=== PATIENT | female | born 1965 | race Caucasian/White ===

== ENCOUNTER 2025-07-05 09:46 | Outpatient (AMB) | payer OTHER, MEDICAID, SELFPAY ==
--- NOTE | 2025-07-05 09:59 | MHC.OFFVIS ---
Intake Visit Reasons: 6 months Allergies Penicillins Allergy (Unknown, Verified 06/28/25 07:56) Unknown Sulfa (Sulfonamide Antibiotics) Allergy (Unknown, Verified 06/28/25 07:56) Unknown Medication List - Last Reconciled 07/05/25 by Joellen Esteves MD levothyroxine 88 mcg PO DAILY lorazepam mg PO methotrexate sodium mg PO metoprolol succinate ER 25 mg PO DAILY rizatriptan take 1 tab at onset of headache; if no relief may repeat 1 tab after at least 2 hrs; max = 3 tabs/24 hr PO HPI Comments Details: Had bilateral orbital decompression in July 2024for thyrotoxicosis.. Had total thyroidectomy on 01/20/24. Having orbital decompression in July. Migraines are doing well after Botox. Now getting 1 migraine a week which can be aborted by Maxalt but if she delays it then it can last several hours . Some increase in frequency from previous baseline. Wants to resume Botox but I am not sure that she needs it just yet at her current frequency. She has been getting Botox inj for chronic migraine with the last one in April 2023. No further aura with some black spots in vision also. She has a history of migraines, mild hydrocephalus and carpal tunnel syndrome. [facility] Medical History (Updated 07/05/25 @ 10:06 by Joellen Esteves MD) TMJ (dislocation of temporomandibular joint) Torticollis Psoriatic arthropathy Anxiety Migraine Carpal tunnel syndrome Review of Systems Const Details: General/Constitutional:? Change in appetitedenies.? Fatiguedenies.? Feverdenies.? Weight gaindenies.? Weight lossdenies. ???Sleep:? Difficulty getting to sleepdenies.? Difficulty maintaining sleepdenies?.? Daytime sleepinessdenies. ???Respiratory:? Shortness of breathdenies.? Chest paindenies. ???Cardiovascular:? Chest pain at restdenies.? Chest pain with exertiondenies.? Dizzinessdenies.? Fluid accumulation in the legsdenies.? Irregular heartbeatdenies.? Palpitationsdenies. ???Gastrointestinal:? Constipationdenies.? Diarrheadenies.? Difficulty swallowingdenies.? Heartburndenies.? Nauseadenies. ???Genitourinary:? Frequent urinationdenies.? Urgencydenies.? Incontinencedenies. ???Musculoskeletal:? Neck paindenies.? Back paindenies.? Joint stiffnessadmits.? Sciaticadenies. ???Neurologic:? Difficulty swallowingdenies.? Balance difficultydenies.? Coordinationnormal.? Difficulty speakingdenies.? Dizzinessdenies.? Faintingdenies.? Gait abnormalitydenies.? Headacheadmits.? Loss of strengthdenies.? Loss of use of extremitydenies.? Low back paindenies.? Memory lossdenies.? Seizuresdenies.? Ticsdenies.? Tingling/Numbnessdenies.? Transient loss of visiondenies.? Tremordenies. ???Psychiatric:? Anxietydenies.? Auditory/visual hallucinationsdenies.? Delusionsdenies.? Depressed mooddenies.? Stressorsdenies.? Suicidal thoughtsdenies. Physical Exam Neuro Other: General Examination: GENERAL APPEARANCE:??normal,?in no acute distress.?HEART:??S1, S2 normal,?no murmurs.?LUNGS:??clear anteriorly and posteriorly.?MUSCULOSKELETAL:??normal.?EXTREMITIES:??no edema.?PSYCH:??alert, oriented,?cognitive function intact,?cooperative with exam.? Mini Mental Status Exam: Level of Consciousness:??Alert.?Orientation:??Knows correct year, month, date, day and season,?Knows correct city, county and state. Knows correct location and floor.?Registration:??Able to register 3 objects.?Attention:??Serial 7's performed accurately.?Recall:??Able to recall 3 out of 3 objects.?Language:??Normal spontaneous speech, fluency, repetition,naming, comprehension, reading and writing.?Total Score:??30/30.? Neurological: Abnormal neurological findings:??Neck is normal..?Mental Status:??alert and oriented X 3,?Normal attention, orientation, memory and affect.?Cranial Nerves:??Pupils are equal, round and reactive to light. Fundoscopy shows normal disc bilaterally. External occular muscles are intact. Visual crandall are full, no ptosis. Face is symmetrical, no facial weakness or droop. Facial sensations are normal. Tongue protrudes in midline. Palate elevates symmetrically. Shoulder shrugging is normal..?Motor Examination:??Normal muscle tone, bulk and strength,?No atrophy or fasciculations,?No drift of the extended upper extremities,?Deep tendon reflexes are 2+?,?Plantars are flexor?.?Straight Leg Raising:??90 degrees.?Sensory Exam:??Normal light touch, temperature, pinprick, vibration and joint-position sensations?,?Rhomberg sign is absent.?Coordination:??no ataxia,?no titubation,?mblpzr-nn-nkqa, sthc-gpjm-oduv test and rapid alternating movements were normal.?Gait Exam:??Within normal limits.?Cerebellar Signs:??Gjutrp-xt-ectz and pepf-fe-ghsv is normal,?no dysdiadochokinesia?.?Extrapyramidal System:??No tremor, rigidity with normal facial expressions,?No bradykinesia, no bradyphrenia. Normal arm swing and posture. No propulsion or retropulsion.?Speech:??Normal,?no dysphasia or dysarthria..? Assessment & Plan Assessment & Plan (1) Migraine: Code(s): G43.909 - Migraine, unspecified, not intractable, without status migrainosus Category: Medical (2) Torticollis: Code(s): M43.6 - Torticollis Category: Medical Plan Continue current meds. Keep a log of migraines and response to Rizatriptan. Call for Botox if frequency increases to 2+/ week Medications: New rizatriptan 10 mg PO Q2-4H PRN 9 tabs 8RF migraine headache 30 days MDD upto 2/ 24 hrs Coding Level of Care Code Est Pt Level 4 (76883) Diagnoses Migraine G43.909 Torticollis M43.6
--- OUTSIDE RECORDS SUMMARY | 2025-07-05 10:53 | XMS_ITS | Encounter Summary ---
Author Organization [facility] Address [address] [facility] [address] [place] [phone] Phone Care Team Providers Care Wagon Winder Name Role Phone Neo Gomez MD Primary Care Provider Adrien Bruce MD Unavailable Pipo Chapman MD Unavailable [phone] Cristopher Duarte MD Unavailable melanie Anabel Ferraro MD Unavailable Encounter Details Date Type Department Care Team (Late st Contact Info) Description 05/31/2025 Telephone [facility] Rheumatology [address] [place] [address] Charles Rivera MD [address] [place] [address] [email or web address] Social History Tobacco Use Types Packs/Day Years Used Date Smoking Tobacco: Never Passive Smoke Exposure: Never Smokeless Tobacco: Never Alcohol Use Standard Drinks/Week Comments Never 0 (1 standard drink = 0.6 oz pur e alcohol) Education Answer Date Recorded Are you interested in more education? Not on petey e 03/15/2023 Are you concerned about learning? Not on file 03/15/2023 No 03/15/2023 No 03/15/2023 Digital Access Answer Date Recorded No 04/15/2023 No 04/15/2023 Reliable internet access at home? Not on file 04/15/2023 Device with a working camera? Not on file Comments Unknown Sex and Gender Information Value Date Recorded Sex Assigned at Not on file Legal Sex Female 10:33 AM EDT Gender Identity Not on file Sexual Orientation Not on file documented as of this encounter Progress Notes * Sam Magallanes - 05/31/2025 3:32 PM EDT Pt called to schedule a 6 month f/u with Dr. Rivera. right of way agent unable to schedule in bookit for that time frame. Please contact and advise. Central Support Carpet Cutter (Please do not reply to this user; this inbox is not monitored.) Thank you. documented in this encounter Plan of Treatment Upcoming Encounters Date Type Department Care Team ([facility] st Contact Info) Description 01/27/2026 11:40 AM EDT Office Visit [facility]inology [address] [place] [address] [place] [address] Anabel Ferraro MD [address] [place] [phone] [email or web address] documented as of this encounter Visit Diagnoses Not on filedocumented in this encounter Care Teams Wagon Winder Relationship Specialty Start Date End Date Neo Gomez MD [address] [facility] [address] [place] [address] PCP - General Internal Medicine 02/13/23 Adrien Bruce MD [address] [facility] [address] [place] [address] Ophthalmology 06/06/23 Pipo Chapman MD [address] [place] [address] Dr Cuevas [address] [place] [id number] General Surgery 06/06/23 06/21/25 Cristopher Duarte MD [address] [place] [address] Dr Cuevas [address] [place] [address] Rheumatology 06/06/23 06/21/25 Anabel Ferraro MD [address] [place] [phone] Endocrinology 06/06/23 documented as of this encounter Additional Source Comments The information contained in this document represents components of the legal health record. It is not the complete legal health record.[facility]
--- OUTSIDE RECORDS SUMMARY | 2025-07-05 10:53 | XMS_ITS | Clinical Summary ---
Author Organization [facility] [email or web address] Address [address] [facility] [place] [address] Phone Care Team Providers Care Epic Willow Specialist Name Role Phone Neo Gomez MD Primary Care Provider [phone] Allergies Active Allergy Reactions Criticality Noted Date Comments Fluoxetine Other Low 11/28/2021 Penicillins Anaphylaxis High 11/28/2021 Sulfa (Sulfonamide Antibiotics) 11/28/2021 Other Reaction(s): Rash/Dermatitis Medications loratadine (CLARITIN) 10 mg tablet Take 1 tablet (10 mg total) by mouth if needed. Active rizatriptan (MAXALT) 10 mg tablet Take 1 Tablet by mouth as needed. May repeat in 2 hours if needed Active metoprolol succinate (TOPROL-XL) 25 mg 24 hr tablet Take 25 mg by mouth daily. Active methotrexate 2.5 mg tablet Take 6 tablets (15 mg total) by mouth 1 (one) time per week 09/19/2013 Active LORazepam (ATIVAN) 0.5 mg tablet Take 0.5 mg by mouth daily as needed. Active ONABOTULINUMTOX GREER INJ Inject as directed as needed. Active folic acid (FOLVITE) 1 mg tablet Take 1 tablet (1,000 mcg total) by mouth 1 (one) time each day. 09/19/2013 Active levothyroxine (SYNTHROID, LEVOTHROID) 88 mcg tablet Take 1 tablet (88 mcg total) by mouth 1 (one) time each day before breakfast. Active Active Problems Problem Noted Date Diagnosed Date Aortic valve regurgitation 05/22/2022 Overview (08/27/2024): Last Assessment & Plan: Patient has known moderate aortic insufficiency. She does not present with any clinical symptoms of heart failure she appears euvolemic on physical examination. Assessment & Plan (05/04/2025 11:20 AM EDT): Has history of aortic insufficiency. Her most recent echocardiogram completed 12/2024 shows moderate regurgitation of the aortic valve. Assessment & Plan (10/08/2024 4:03 PM EST): Patient with a history of aortic insufficiency. Plan on repeating an echocardiogram in a year to assess the severity of the insufficiency and any effects on LV size or systolic function Mitral valve regurgitation 05/22/2022 Overview (08/27/2024): Last Assessment & Plan: Mild mitral regurgitation noted on echocardiogram. She denies any clinical symptoms of heart failure and she appears euvolemic on physical examination. Assessment & Plan (05/04/2025 11:20 AM EDT): Patient has history of mitral regurgitation. Most recent echocardiogram from 12/2024 shows mild functional mitral stenosis and mild mitral insufficiency. Tricuspid valve regurgitation 05/22/2022 Hypercholesterolemia 11/28/2021 Assessment & Plan (05/04/2025 11:20 AM EDT): Lipids are being monitored by her primary care provider. Presently the patient is not on any lipid-lowering agents. NSVT (nonsustained ventricul ar tachycardia) (CMS/HCC V24, CMS/HCC V28) 11/28/2021 Overview (05/04/2025): Assessment & Plan (05/04/2025 11:20 AM EDT): Patient has history of nonsustained ventricular tachycardia in the past. Her echocardiogram is stable and she had a warehouse general laborer completed in the past which did not show any significant ectopy. Continue on metoprolol as prescribed. Tachycardia 11/28/2021 Overview (05/04/2025): Assessment & Plan (05/04/2025 11:20 AM EDT): Patient has history of tachycardia which has been stable. She will continue on metoprolol. Patient has history of Graves' disease and recently underwent thyroidectomy. Her tachycardia has become more stable since recent adjustment in her levothyroxine. Patient advised that she can take extra metoprolol as needed for palpitations. Resolved Problems Problem Noted Date Diagnosed Date Resolved Date Palpitations 10/08/2024 05/04/2025 Ventricular premature beats 05/22/2022 05/04/2025 Overview (08/27/2024): Last Assessment & Plan: She does have a history of nonsustained ventricular tachycardia. Her most recent Holter monitor showed no ventricular arrhythmia. She had rare PVCs. Dizziness 11/28/2021 05/04/2025 Overview (08/27/2024): Last Assessment & Plan: Her dizziness does not appear to be related to her tachycardia or palpitations. This sounds to be vertiginous in nature. We will monitor this. Assessment & Plan (10/08/2024 4:03 PM EST): Patient with a history of nonsustained V. tach PVCs and tachycardia cardia. Patient is relatively asymptomatic from a cardiovascular standpoint still complains of lightheadedness low has some ear nose and throat issues and says that she has been separate from the ENT clinic I have asked her to try to take some Flonase and Claritin to see if there is an allergic rhinitis that is producing sinusitis which could be causing her symptoms of lightheadedness. There is no need to change any of her medical therapy at this time It does not appear that there is a cardiac etiology for her symptoms to me it seems that there is more of an ENT process that she needs to look further into Dyspnea 11/28/2021 05/04/2025 Overview (08/27/2024): Last Assessment & Plan: We did discuss her shortness of breath. This has been stable. Her echocardiogram shows no significant changes to explain her shortness of breath. We did discuss that some of this could be due to the fact that she gained 20pounds and is deconditioned. I have encouraged her to work on diet and exercise to see if her dyspnea will improve. Encounters Date Type Department Care Team Description 05/04/2025 11:10 AM EDT Office Visit [facility] [address] [facility] [address] [place] [phone] Bessy Parish NP NSVT (nonsustained ventricular tachycardia) ([facility] V24, [facility] V28) (Primary Dx); Aortic valve insufficiency, etiology of cardiac valve disease unspecified; Mitral valve insufficiency, unspecified etiology; Tachycardia; Hypercholesterolemia from Last 3 Months Surgical History Surgery Date Site/Laterality Comments LA BREAST REDUCTION EARLY HYSTERECTOMY 2010 Medical History Medical History Date Comments Lymphoma ([facility] V24, [facility] V28) Family History Medical History Relation Name Comments Ulcerative colitis Brother Hx Calculus of kidney Father Hypertension Father Psoriasis Father malignant tumor of breast Maternal Grandmother COPD Mother Clostridioides difficile infection Mother Heart failure Mother Breast cancer Paternal Grandmother Relation Name Status Comments Brother Father Maternal Grandmother Mother Paternal Grandmother Social History Tobacco Use Types Packs/Day Years Used Date Smoking Tobacco: Never Smokeless Tobacco: Never Tobacco Cessation:Counseling Given: Not Answered Alcohol Use Standard Drinks/Week Comments Never 0 (1 standard drink = 0.6 oz pur e alcohol) Comments No Sex and Gender Information Value Date Recorded Sex Assigned at Female 10/05/2024 3:04 PM EST Legal Sex Female 9:06 PM EST Gender Identity Female 10/05/2024 3:04 PM EST Sexual Orientation Straight 10/05/2024 3: 04 PM EST Obstetrics History Para Term AB IAB SAB Ectopic Multiple Livin g Live Births 1 Last Filed Vital Signs Vital Sign Reading Time Taken Comments Blood Pressure 136/86 05/04/2025 11:03 AM EDT Pulse 88 05/04/2025 11:03 AM EDT Temperature - - Respiratory Rate - - Oxygen Saturation 98% 05/04/2025 11:03 AM EDT Inhaled Oxygen Concentration - - Weight 83 kg (183 lb) 05/04/2025 11:03 AM EDT Height 162.6 cm (5' 4 ) 05/04/2025 11:03 AM EDT Body Mass Index 31.41 05/04/2025 11:03 AM EDT Plan of Treatment Health Maintenance Due Date Last Done Comments Hepatitis A Vaccines (1 of 2 - Risk 2-dose series) 1985 Hepatitis B Vaccines (1 of 3 - 19+ 3-dose series) 1985 Cervical Cancer Screening: Pap Smear 1987 Pneumococcal Vaccine: 50+ Years (1 of 1 - PCV) 2016 Cholesterol Screening (Lipid Panel) 10/27/2022 Colorectal Cancer Screening: Colonoscopy 10/27/2022 HIV Screening 10/27/2022 Medicare Annual Wellness Visit 10/27/2022 Social Influencers of Health Screening 10/27/2022 COVID-19 Vaccine ( season) 2024 12/13/2023, 09/10/2022, 10/16/2021, Additional history exists Depression Screening 11/17/2024 Influenza Vaccine (#1) 2025 , 09/01/2023, 08/13/2022, Additional history exists Hypertension/CHF/CAD Annual BMP Blood Test 09/30/2025 09/30/2024, 06/11/2024, 04/21/2024, Additional history exists Breast Cancer Screening 03/01/2027 03/01/20, 02/26/2024, 01/15/2023, Additional history exists DTaP,Tdap,and Td Vaccines (4 - Td or Tdap) 08/22/2030 08/22/2020, 05/04/2010, 08/23/2007 RSV Immunization Adult Patients (1 - 1-dose 75+ series) 2041 Zoster Vaccines Completed 09/05/2020, 12/2019, 07/14/2019 Hepatitis C Screening Completed 06/03/2023 HIB Vaccines Aged Out No longer eligi ble based on patient's age to complete this topic HPV Vaccines Aged Out No longer eligi ble based on patient's age to complete this topic IPV Vaccines Aged Out No longer eligi ble based on patient's age to complete this topic MMR Vaccines Aged Out No longer eligi ble based on patient's age to complete this topic Meningococcal ACWY Vaccine Aged Out N o longer eligible based on patient's age to complete this topic Meningococcal B Vaccine Aged Out No l onger eligible based on patient's age to complete this topic RSV Immunization Patients Under 20 months Aged Out No longer eligible based on patient's age to complete this topic Varicella Vaccines Aged Out No longer eligible based on patient's age to complete this topic Procedures Procedure Name Priority Date/Time Associated Diagnosis Comments ECG 12-LEAD Routine 05/04/2025 11:12 AM EDT NSVT (nonsustained ventricular tachycardia) (CMS/HCC V24, CMS/HCC V28) MG MAMMO DIGITAL SCREENING W JOSE BILAT Routine 03/01/2025 10:11 AM EDT Encounter for other screening for malignant neoplasm of breast from Last 3 Months or Most Recently Relevant to Health Maintenance Results * ECG 12 lead (05/04/2025 11:12 AM EDT) Ventricular Rate ECG 88 BPM GEMUSE Atrial Rate 88 BPM GEMUSE P-R Interval 166 ms GEMUSE QRS Duration 74 ms GEMUSE Q-T Interval 350 ms GEMUSE QTc 423 ms GEMUSE P Wave [place] 78 degrees GEMUSE R [place] 79 degrees GEMUSE T [place] 21 degrees GEMUSE ECG Interpretation Normal sinus rhythm Normal ECG When compared with ECG of 31-AUG-2013 12:26, No significant change was found Confirmed by Seth AGGARWAL JAMES ([id number]) on 05/04/2025 3:59:53 PM GEMUSE 05/04/2025 11:0 7 AM EDT 05/04/2025 3:59 PM EDT us Bessy Parish NP ECG ORDERABLES Edited Resul t - Final GEMUSE * MG Mammo Digital Screening w Jose bilat (03/01/2025 10:11 AM EDT) Anatomical Region Laterality Modality Breast Bilateral Mammography 03/01/2025 11:4 9 AM EDT Impressions 03/01/2025 11:59 AM EDT No mammographic evidence of malignancy. A negative mammogram in the presence of a clinically suspicious palpable abnormality does not preclude the possibility of malignancy or alter the indications for biopsy. PQRI CPT II 3342F Code 55328, 78333 PQRI 225 CPT II 7025F TISSUE DENSITY: The breasts are almost entirely fatty. (BI-RADS Category A) IMPRESSION: Benign. BI-RADS CATEGORY: 2 - BENIGN RECOMMENDATION: Screening bilateral mammogram is recommended in 1 year. Mammo Location: [facility], [address] [place] [id number] -------- FINAL REPORT -------- Dictated By: Syed Mcghee Dictated Date: 03/01/2025 11:49 ET Assigned Physician: Syed Mcghee Reviewed and Electronically Signed By: Syed Mcghee Signed Date: 03/01/2025 11:59 ET Workstation ID: [id number] Transcribed By: Self Edit Transcribed Date: 03/01/2025 11:55 ET Narrative 03/01/2025 11:59 AM EDT CLINICAL: The patient is a 60 years Female presenting for routine screening mammography. The patient underwent reduction mammoplasty in 2002. The patient has a personal history of Hodgkin's lymphoma. The patient has a family history of breast cancer involving her paternal grandmother. COMPARISON: Most recently 02/25/2024 and most remotely 09/17/2017. TECHNIQUE: Full-field digital mammography of the breasts bilaterally consisting of tomosynthesis in MLO and CC projection is performed in the [employer]he 2000-D unit. Computer aided detection utilizing the iCAD system was utilized. FINDINGS: The breasts are again seen to be largely fatty replaced. Bilateral punctate calcifications, most numerous anteriorly in the left breast, are without suspicious interval change. There is no suspicious cluster of microcalcifications, mass, or area of architectural distortion. There is no skin thickening or nipple retraction. Procedure Note Syed Mcghee MD - 03/01/2025 CLINICAL: The patient is a 60 years Female presenting for routinescreening mammography. The patient underwent reduction mammoplasty [id number]. The patient has a personal history of Hodgkin's lymphoma. Thepatient has a family history of breast cancer involving her paternalgrandmother. COMPARISON: Most recently 02/25/2024 and most remotely 09/17/2017. TECHNIQUE: Full-field digital mammography of the breasts bilaterallyconsisting of tomosynthesis in MLO and CC projection is performed in theBill.[employer]ographe 2000-D unit. Computer aided detection utilizing the RuffaloCODYystem was utilized. FINDINGS: The breasts are again seen to be largely fatty replaced.Bilateral punctate calcifications, most numerous anteriorly in the leftbreast, are without suspicious interval change. There is no suspiciouscluster of microcalcifications, mass, or area of architectural distortion.There is no skin thickening or nipple retraction. IMPRESSION: No mammographic evidence of malignancy. A negative mammogram in the presence of a clinically suspicious palpableabnormality does not preclude the possibility of malignancy or alter theindications for biopsy. PQRI CPT II 3342F Code 20754, 58012 PQRI 225 CPT II 7025F TISSUE DENSITY: The breasts are almost entirely fatty. (BI-RADS CategoryA) IMPRESSION: Benign. BI-RADS CATEGORY: 2 - BENIGN RECOMMENDATION: Screening bilateral mammogram is recommended in 1 year. Mammo Location: [facility], [address] [place] [id number] -------- FINAL REPORT -------- Dictated By: Syed Mcghee Dictated Date: 03/01/2025 11:49 ET Assigned Physician: Syed Mcghee Reviewed and Electronically Signed By: Syed Mcghee Signed Date: 03/01/2025 11:59 ET Workstation ID: [id number] Transcribed By: Self Edit Transcribed Date: 03/01/2025 11:55 ET Neo Gomez MD IMG BI PROCEDURES Final Result from Last 3 Months or Most Recently Relevant to Health Maintenance Insurance [place] [employer] [place] MEDICARE [employer]VANTAGE [address] [place] [address] Care Teams Epic Willow Specialist Relationship Specialty Start Date End Date Neo Gomez MD [address] [facility] [address] [place], [place] PCP - General Internal Medicine 03/31/13
== END 2025-07-05 10:18 | disposition home or self-care (01) ==
LOC: HO.HSM 09:47
PROVIDERS: PCP Pediatrics; Referring Provider Pediatrics; Visit Provider Psychiatry & Neurology Neurology
DX: G43.909 Migraine, unspecified, not intractable, without status migrainosus (principal); M43.6 Torticollis
CPT/HCPCS: 99214